=== PATIENT | female | born 1955 | race Caucasian/White ===

== ENCOUNTER 2018-01-10 11:44 | Observation (INO) | payer OTHER ==
--- NOTE | 2018-01-10 13:01 | ER Document Report ---
ED Medical Screen (RME) - General Chief Complaint: Dizziness Stated Complaint: NAUSEA, DIARRHEA, DIZZINESS Mode of Arrival: Wheelchair Information source: Patient Notes: 62 y.o female presents to the ED with dizziness, nausea and diarrhea. She reports having diarrhea intermittently for the past couple months, ever since she was put on the Xanax, and reports that before she would have constipation chronically. Pt reports that her diarrhea has worsened for the past couple weeks and states that she felt as if she was going to collapse today prior to coming here. Pt reports a low grade fever every morning. She reports recent change in her anxiety medication, taken off of Xanax and put on another anxiety medication. Pt denies any CP. PMHx of brain tumor removal in 1990. Placed on anti-seizure medication after tumor removal but did not have to do chemotherapy of radiation and no longer takes the anti-seizure medication. I have greeted and performed a rapid initial assessment of the patient. A comprehensive ED assessment and evaluation of the patient, analysis of test results, and completion of the medical decision making process will be conducted by additional ED providers. PHYSICAL EXAM: General: Alert, appears well. HEENT: Normocephalic. Atraumatic. Neck: Supple. Cardiovascular: RRR Respiratory: CTAB Abdominal: No distension. Extremities: Moves all four extremities. Neurological: Normal cognition. AAOx4. Normal speech. Psychological: Normal affect. Normal Mood. Skin: Warm. Dry. Normal color. Physical Exam - Vital signs Vitals: Temp Pulse Resp BP Pulse Ox 97.8 F 70 18 146/92 H 100 01/10/18 11:49 01/10/18 11:49 01/10/18 11:49 01/10/18 11:49 01/10/18 11:49 Course - Vital Signs Vital signs: Temp Pulse Resp BP Pulse Ox 97.8 F 70 18 146/92 H 100 01/10/18 11:49 01/10/18 11:49 01/10/18 11:49 01/10/18 11:49 01/10/18 11:49 Scribe Documentation - Scribe Written by Jarred:: Lindsey Galvan, Jarred 01/10/18 [id number] acting as scribe for :: Miguel
[2018-01-10] MEDS ORDERED: NORMAL SALINE 1000 ML 1,000 ML IV ONE ×2 (13:02→16:22)
[2018-01-10 13:44] LABS: ABSOLUTE BASOPHILS # (AUTO) 0.1 10^3/uL (0.0-0.2); ABSOLUTE LYMPHOCYTES (AUTO) 1.4 10^3/uL (0.5-4.7); ABSOLUTE MONOCYTES (AUTO) 0.6 10^3/uL (0.1-1.4); ABSOLUTE NEUT (AUTO) 9.3 10^3/uL (1.7-8.2); BASOPHILS % (AUTO) 0.5 % (0-2); EOSINOPHILS % (AUTO) 0.1 % (0-6); HEMATOCRIT 40.6 % (36.0-47.0); HEMOGLOBIN 14.2 g/dL (12.0-15.5); LYMPHOCYTES % (AUTO) 12.5 % (13-45); MEAN CORPUSCULAR HEMOGLOBIN 33.3 pg (27.0-33.4); MEAN CORPUSCULAR VOLUME 95 fl (80-97); MONOCYTES % (AUTO) 5.1 % (3-13); RED BLOOD COUNT 4.27 10^6/uL (3.72-5.28); RED CELL DISTRIBUTION WIDTH 14.7 % (11.5-14.0); SEGMENTED NEUTROPHILS % (AUTO) 81.8 % (42-78); TOTAL CELLS COUNTED % (AUTO) 100 %; WHITE BLOOD COUNT 11.4 10^3/uL (4.0-10.5)
[2018-01-10] MEDS ORDERED: PROCHLORPERAZINE EDISYLATE INJ 10 MG/2 ML VIAL IV ONE (13:55)
[2018-01-10 14:12] LABS: PLATELET COUNT 219 10^3/uL (150-450)
[2018-01-10 14:49] LABS: APPEARANCE,URINE SLIGHTLY-CLOUDY; BILIRUBIN,URINE NEGATIVE (NEGATIVE); COLOR,URINE STRAW; GLUCOSE, URINE NEGATIVE (NEGATIVE); KETONES,URINE NEGATIVE (NEGATIVE); LEUKOCYTE ESTERASE,URINE NEGATIVE (NEGATIVE); NITRITE,URINE NEGATIVE (NEGATIVE); PROTEIN,URINE NEGATIVE (NEGATIVE); URINE SPECIFIC GRAVITY 1.008; UROBILINOGEN,URINE NEGATIVE mg/dL (<2.0)
[2018-01-10 15:02] LABS: ALANINE AMINOTRANSFERASE 41 U/L (9-52); ALKALINE PHOSPHATASE 83 U/L (38-126); ANION GAP 14 (5-19); ASPARTATE AMINO TRANSFERASE 38 U/L (14-36); BILIRUBIN,DIRECT 0.4 mg/dL (0.0-0.4); BILIRUBIN,TOTAL 0.5 mg/dL (0.2-1.3); BLOOD UREA NITROGEN 23 mg/dL (7-20); CALCIUM 10.1 mg/dL (8.4-10.2); CARBON DIOXIDE 29 mmol/L (22-30); CHLORIDE 92 mmol/L (98-107); GLUCOSE 88 mg/dL (75-110); POTASSIUM 4.5 mmol/L (3.6-5.0); TOTAL PROTEIN 8.2 g/dL (6.3-8.2)
--- NOTE | 2018-01-10 15:02 | ER Document Report ---
ED General - General Chief Complaint: Dizziness Stated Complaint: NAUSEA, DIARRHEA, DIZZINESS Time Seen by Provider: 01/10/18 12:54 Mode of Arrival: Wheelchair - HPI Notes: 62-year-old female with a past medical history of brain tumor resection with status post seizures that have been well controlled for the last 10 years for concerns of new onset dizziness with associated nausea and vomiting that are occurring for the last 2 days. states that patient started having slurred vision - Related Data Allergies/Adverse Reactions: No Known Allergies Allergy (Verified 01/10/18 13:59) Past Medical History - General Information source: Patient - Social History Smoking Status: Current Every Day Smoker Chew tobacco use (# tins/day): No - vapes "alot" Frequency of alcohol use: None Drug Abuse: None Family History: Reviewed & Not Pertinent Patient has suicidal ideation: No Patient has homicidal ideation: No - Past Medical History Cardiac Medical History: Reports: Hx Hypertension Renal/ Medical History: Denies: Hx Peritoneal Dialysis Past Surgical History: Reports: Hx Hysterectomy Physical Exam - Vital signs Vitals: Temp Pulse Resp BP Pulse Ox 97.8 F 70 18 146/92 H 100 01/10/18 11:49 01/10/18 11:49 01/10/18 11:49 01/10/18 11:49 01/10/18 11:49 Course - Re-evaluation Re-evalutation: 01/10/18 17:12 62-year-old female presents to the ED via EMS for complaints of dizziness, nausea, slurred speech that occurred at 07 100 this morning and resolved 2 hours later, was witnessed by her . CBC negative for leukocytosis or anemia, CMP negative for marked hepatic or renal deficiency, no electrolyte disturbances. Urinalysis negative for any UTI. His NIH score 0. EKG negative for STEMI, sinus rhythm chest x-ray negative for acute findings, CT head negative for stroke. Case discussed with Dr. Emily Corey, ED attending, who felt the patient is a candidate for observation for TIA, consulted with Dr. Jah Scruggs, hospitalist, for observation. Questions and concerns answered by this provider with patient. Patient agreeable with plan of care for observation for TIA. Patient remains afebrile, vitals stable, denies any dizziness and without any focal neurological deficits 01/10/18 17:21 - Vital Signs Vital signs: Temp Pulse Resp BP Pulse Ox 97.8 F 77 17 137/85 H 96 01/10/18 11:49 01/10/18 14:39 01/10/18 14:39 01/10/18 14:39 01/10/18 14:39 - Laboratory Result Diagrams: 01/10/18 13:30 01/10/18 14:15 Laboratory results interpreted by me: 01/10/18 01/10/18 01/10/18 13:30 14:15 14:15 WBC 11.4 H RDW 14.7 H Seg Neutrophils % 81.8 H Lymphocytes % 12.5 L Absolute Neutrophils 9.3 H Sodium 135.0 L Chloride 92 L BUN 23 H AST 38 H Creatine Kinase 228 H Discharge - Discharge Clinical Impression: TIA (transient ischemic attack) Qualifiers: Transient cerebral ischemia type: unspecified Qualified Code(s): G45.9 - Transient cerebral ischemic attack, unspecified Condition: Stable Disposition: ADMITTED OBSERVATION Admitting Provider: Hospitalist - Dr. Thompson Scruggs Unit Admitted: Telemetry Referrals: VITA BARAJAS MD [Primary Care Provider] - Follow up as needed
[2018-01-10 15:13] LABS: CREATINE KINASE MB 4.15 ng/mL (<4.55)
[2018-01-10 15:15] LABS: TROPONIN I < 0.012 ng/mL
--- NOTE | 2018-01-10 15:22 | RADIOLOGY REPORT (SQ) ---
EXAM DESCRIPTION: CT HEAD WITHOUT COMPLETED DATE/TIME: 01/10/2018 3:06 pm REASON FOR STUDY: dizziness, hx of brain tumor resection COMPARISON: None. TECHNIQUE: Axial images acquired through the brain without intravenous contrast. Images reviewed wi th bone, brain and subdural windows. Additional sagittal and coronal reconstructions were generated. Images stored on PACS. All CT scanners at this facility use dose modulation, iterative reconstruction, and/or weight based d osing when appropriate to reduce radiation dose to as low as reasonably achievable (ALARA). [facility]: Dose Right [facility]: CareDose [facility]: Dose Right [facility]: Teradose 4D [facility]: Smart Technologies RADIATION DOSE: CT Rad equipment meets quality standard of care and radiation dose reduction techniq ues were employed. CTDIvol: 53.2 mGy. DLP: 1044 mGy-cm. mGy. LIMITATIONS: None. FINDINGS: VENTRICLES: Normal size and contour. CEREBRUM: No masses. No hemorrhage. No midline shift. No evidence for acute infarction. Normal gra y/white matter differentiation. No areas of low density in the white matter. Alkalol right heel prio r surgery. CEREBELLUM: No masses. No hemorrhage. No alteration of density. No evidence for acute infarction. EXTRAAXIAL SPACES: No fluid collections. No masses. ORBITS AND GLOBE: No intra- or extraconal masses. Normal contour of globe without masses. CALVARIUM: Right frontal craniotomy. PARANASAL SINUSES: No fluid or mucosal thickening. SOFT TISSUES: No mass or hematoma. OTHER: No other significant finding. IMPRESSION: Focal right frontal encephalomalacia status post surgery. No hemorrhage. No mass. EVIDENCE OF ACUTE STROKE: NO. COMMENT: Quality ID # [id number]: Final reports with documentation of one or more dose reduction techniques (e.g., Automated exposure control, adjustment of the mA and/or kV according to patient size, use of iterative reconstruction technique) TECHNICAL DOCUMENTATION: JOB ID: [id number] [employer]- All Rights Reserved Reading location - IP/workstation name: [email or web address]
--- NOTE | 2018-01-10 16:10 | RADIOLOGY REPORT (SQ) ---
EXAM DESCRIPTION: CHEST SINGLE VIEW COMPLETED DATE/TIME: 01/10/2018 3:51 pm REASON FOR STUDY: dizziness COMPARISON: None. EXAM PARAMETERS: NUMBER OF VIEWS: One view. TECHNIQUE: Single frontal radiographic view of the chest acquired. RADIATION DOSE: NA LIMITATIONS: None. FINDINGS: LUNGS AND PLEURA: No opacities, masses or pneumothorax. No pleural effusion. MEDIASTINUM AND HILAR STRUCTURES: No masses. Contour normal. HEART AND VASCULAR STRUCTURES: Heart normal in size. Normal vasculature. BONES: No acute findings. HARDWARE: None in the chest. OTHER: No other significant finding. IMPRESSION: NO ACUTE RADIOGRAPHIC FINDING IN THE CHEST. TECHNICAL DOCUMENTATION: JOB ID: [id number] [employer]- All Rights Reserved Reading location - IP/workstation name: [email or web address]
--- NOTE | 2018-01-10 16:42 | EKG REPORT ---
SEVERITY:- ABNORMAL ECG - SINUS RHYTHM BORDERLINE LEFT AXIS DEVIATION BORDERLINE R WAVE PROGRESSION, ANTERIOR LEADS NONSPECIFIC T ABNORMALITIES, ANTERIOR LEADS : Confirmed by: Ivan Vanegas MD 10-Jan-2018 16:41:41
[2018-01-10] MEDS ORDERED: ASPIRIN 81 MG TABLET, CHEWABLE PO ONE (17:02)
[2018-01-10] MEDS ORDERED: ACETAMINOPHEN 325 MG TABLET PO PRN (17:10)
[2018-01-10] MEDS ORDERED: ONDANSETRON HCL INJ/PF 4 MG/2 ML SDV IV PRN (17:10)
--- NOTE | 2018-01-10 18:28 | PDOC H&P ---
History of Present Illness Admission Date/PCP: 01/10/18 17:41 VITA BARAJAS MD Patient complains of: complaints of nausea vomiting diarrhea which has been going on for about 3 months. She states however that this was accompanied with dizziness today History of Present Illness: CELY CARUSO is a 62 year old female Patient presents to the emergency room with complaints of nausea vomiting diarrhea which has been going on for about 3 months. She states however that this was accompanied with dizziness today and so she got concerned and went to her primary care physician for evaluation. Was there she says her primary care physician could not obtain her systolic blood pressure and so EMS was called and she was brought here for further evaluation. Blood pressure on arrival to the ER was 146/92 with a pulse of 110. Because of dizziness she has been admitted and placed under observation to rule out an acute TIA although clinically I see no evidence of this. Spouse did mention that her speech seemed to be slurred when she was feeling dizzy. She has a remote history of a brain tumor, details unknown, about 21 years ago which was apparently resected. She was placed on Dilantin for about 10 years after that because she had seizures however she is been off Dilantin for at least another 10 years with no further episodes of seizures. CAT scan done today reveals no evidence of any acute finding. Patient says also that she had what appeared to be chest pain sometime in July of this year and she was admitted to [facility] where she had workup done including stress test as well as echocardiogram which she told me was negative. She has had no bowel movement since been in hospital and also has been up to the bathroom a few times with no evidence of dizziness or any other progressive symptoms Past Medical History Cardiac Medical History: Reports: Hypertension Neurological Medical History: Reports: Seizures Past Surgical History Past Surgical History: Reports: Hysterectomy, Other - Craniotomy Social History Smoking Status: Current Every Day Smoker - Advance Directive Resuscitation Status: Full Code Family History Family History: Reviewed & Not Pertinent Parental Family History Reviewed: No Children Family History Reviewed: Yes Sibling(s) Family History Reviewed.: Yes Medication/Allergy Allergies/Adverse Reactions: No Known Allergies Allergy (Verified 01/10/18 13:59) Review of Systems All systems: reviewed and no additional remarkable complaints except as stated Physical Exam Vital Signs: Temp Pulse Resp BP Pulse Ox 97.8 F 77 17 137/85 H 96 01/10/18 11:49 01/10/18 14:39 01/10/18 14:39 01/10/18 14:39 01/10/18 14:39 General appearance: PRESENT: no acute distress, well-developed, well-nourished Head exam: PRESENT: atraumatic, normocephalic, other - Indentation R frontal area Eye exam: PRESENT: conjunctiva pink, EOMI, PERRLA. ABSENT: scleral icterus Ear exam: PRESENT: normal external ear exam Mouth exam: PRESENT: moist, tongue midline Neck exam: ABSENT: carotid bruit, JVD, lymphadenopathy, thyromegaly Respiratory exam: PRESENT: clear to auscultation nalini. ABSENT: rales, rhonchi, wheezes Cardiovascular exam: PRESENT: RRR. ABSENT: diastolic murmur, rubs, systolic murmur Pulses: PRESENT: normal dorsalis pedis pul Vascular exam: PRESENT: normal capillary refill GI/Abdominal exam: PRESENT: normal bowel sounds, soft. ABSENT: distended, guarding, mass, organolmegaly, rebound, tenderness Rectal exam: PRESENT: deferred Extremities exam: PRESENT: full ROM. ABSENT: calf tenderness, clubbing, pedal edema Neurological exam: PRESENT: alert, awake, oriented to person, oriented to place , oriented to time, oriented to situation, CN II-XII grossly intact. ABSENT: motor sensory deficit Psychiatric exam: PRESENT: appropriate affect, normal mood. ABSENT: homicidal ideation, suicidal ideation Skin exam: PRESENT: dry, intact, warm. ABSENT: cyanosis, rash Results Laboratory Results: 01/10/18 13:30 01/10/18 14:15 MCV 95 fl (80-97) 01/10/18 13:30 MCH 33.3 pg (27.0-33.4) 01/10/18 13:30 MCHC 35.0 g/dL (32.0-36.0) 01/10/18 13:30 RDW 14.7 % (11.5-14.0) H 01/10/18 13:30 Seg Neutrophils % 81.8 % (42-78) H 01/10/18 13:30 Lymphocytes % 12.5 % (13-45) L 01/10/18 13:30 Monocytes % 5.1 % (3-13) 01/10/18 13:30 Eosinophils % 0.1 % (0-6) 01/10/18 13:30 Basophils % 0.5 % (0-2) 01/10/18 13:30 Absolute Neutrophils 9.3 10^3/uL (1.7-8.2) H 01/10/18 13:30 Absolute Lymphocytes 1.4 10^3/uL (0.5-4.7) 01/10/18 13:30 Absolute Monocytes 0.6 10^3/uL (0.1-1.4) 01/10/18 13:30 Absolute Eosinophils 0.0 10^3/uL (0.0-0.6) 01/10/18 13:30 Absolute Basophils 0.1 10^3/uL (0.0-0.2) 01/10/18 13:30 Chloride 92 mmol/L (98-107) L 01/10/18 14:15 Carbon Dioxide 29 mmol/L (22-30) 01/10/18 14:15 Anion Gap 14 (5-19) 01/10/18 14:15 Est GFR ( Amer) > 60 (>60) 01/10/18 14:15 Est GFR (Non-Af Amer) > 60 (>60) 01/10/18 14:15 Glucose 88 mg/dL (75-110) 01/10/18 14:15 Calcium 10.1 mg/dL (8.4-10.2) 01/10/18 14:15 Magnesium 1.8 mg/dL (1.6-2.3) 01/10/18 14:15 Total Bilirubin 0.5 mg/dL (0.2-1.3) 01/10/18 14:15 AST 38 U/L (14-36) H 01/10/18 14:15 ALT 41 U/L (9-52) 01/10/18 14:15 Alkaline Phosphatase 83 U/L (38-126) 01/10/18 14:15 Total Protein 8.2 g/dL (6.3-8.2) 01/10/18 14:15 Albumin 5.0 g/dL (3.5-5.0) 01/10/18 14:15 TSH 2.25 uIU/mL (0.47-4.68) 01/10/18 14:15 Urine Color STRAW 01/10/18 14:15 Urine Appearance SLIGHTLY-CLOUDY 01/10/18 14:15 Urine pH 6.0 (5.0-9.0) 01/10/18 14:15 Ur Specific [place] 1.008 01/10/18 14:15 Urine Protein NEGATIVE mg/dL (NEGATIVE) 01/10/18 14:15 Urine Glucose (UA) NEGATIVE mg/dL (NEGATIVE) 01/10/18 14:15 Urine Ketones NEGATIVE mg/dL (NEGATIVE) 01/10/18 14:15 Urine Blood NEGATIVE (NEGATIVE) 01/10/18 14:15 Urine Nitrite NEGATIVE (NEGATIVE) 01/10/18 14:15 Ur Leukocyte Esterase NEGATIVE (NEGATIVE) 01/10/18 14:15 Urine WBC (Auto) 0 /HPF 01/10/18 14:15 Urine RBC (Auto) 0 /HPF 01/10/18 14:15 01/10/18 01/10/18 14:15 14:15 Creatine Kinase 228 H CK-MB (CK-2) 4.15 Troponin I < 0.012 Impressions: Head CT 01/10/18 14:41 IMPRESSION: Focal right frontal encephalomalacia status post surgery. No hemorrhage. No mass. EVIDENCE OF ACUTE STROKE: NO. Chest X-Ray 01/10/18 15:26 IMPRESSION: NO ACUTE RADIOGRAPHIC FINDING IN THE CHEST. Assessment & Plan - Diagnosis (1) TIA (transient ischemic attack) Qualifiers: Transient cerebral ischemia type: unspecified Qualified Code(s): G45.9 - Transient cerebral ischemic attack, unspecified Is this a current diagnosis for this admission?: Yes Plan: This diagnosis is unlikely to me based on my clinical assumption however she presented with some dizziness which have completely resolved. Carotid Doppler as well as MRI will be obtained. Since she had a two-dimensional echocardiogram done just this year we will try and obtain the results from [facility]. Patient will be placed in observation status and if she is stable she likely can be discharged home tomorrow - Time Time Spent: 30 to 50 Minutes Medications reviewed and adjusted accordingly: Yes Anticipated discharge: Home Within: within 48 hours - Inpatient Certification Based on my medical assessment, after consideration of the patient's comorbidities, presenting symptoms, or acuity I expect that the services needed warrant INPATIENT care.: Yes Medical Necessity: Risk of Complication if Not Cared For in Hospital
[2018-01-10] MEDS ORDERED: ATORVASTATIN CALCIUM 10 MG TABLET PO SCH (22:00)
[2018-01-11 06:39] LABS: CHOLESTEROL 172.67 mg/dL (0-200); TRIGLYCERIDES 62 mg/dL (<150)
[2018-01-11 06:51] LABS: DIRECT LDL 38 mg/dL (<100)
--- NOTE | 2018-01-11 09:50 | RADIOLOGY REPORT (SQ) ---
EXAM DESCRIPTION: MRI HEAD WITHOUT COMPLETED DATE/TIME: 01/11/2018 9:05 am REASON FOR STUDY: Dizziness COMPARISON: CT brain 01/10/2018 TECHNIQUE: Multiplanar imaging includes non-contrasted T1, T2, FLAIR, and diffusion with ADC map seq uences. Images stored on PACS. LIMITATIONS: None. FINDINGS: ANATOMY: No developmental anomalies. Normal vascular flow voids. Pituitary fossa normal. CSF SPACES: Normal in size and contour. No hemorrhage. CEREBRUM: Old right frontal craniotomy with a 4.4 x 4.6 x 2.4 cm band like area of encephalomalacia from the cortex to the right frontal horn lateral ventricle. Remainder of the brain is otherwise unr emarkable. POSTERIOR FOSSA: No signal alteration. No hemorrhage. No edema, masses or mass effect. Internal blair tory canals, cerebello-pontine angles, mastoids normal. DIFFUSION IMAGING: Negative for acute or sub-acute infarction. ORBITS: No masses. Globes normal. PARANASAL SINUSES: No fluid levels. Mucosa normal. OTHER: No other significant finding. 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 NO ACUTE FINDINGS EVIDENCE OF ACUTE STROKE: NO. TECHNICAL DOCUMENTATION: JOB ID: [id number] [employer]- All Rights Reserved Reading location - IP/workstation name: [email or web address]
[2018-01-11] MEDS ORDERED: DOCUSATE SODIUM 100 MG CAPSULE PO SCH (10:00)
[2018-01-11] MEDS ORDERED: ENOXAPARIN SODIUM INJ 40 MG/0.4 ML DISP.SYRIN SUBCUT SCH (10:00)
[2018-01-11] MEDS ORDERED: METOPROLOL TARTRATE 25 MG TABLET PO SCH (10:00)
[2018-01-11] MEDS ORDERED: ASPIRIN 81 MG TABLET, ENT COATED PO SCH (10:00)
[2018-01-11] MEDS ORDERED: (PENDING PHARMACY ID) (Lisinopril/Hydrochlorothiazide [Zestoretic 10-12.5 Mg Tablet] 1 TAB PO SCH (10:15)
[2018-01-11] MEDS ORDERED: LISINOPRIL 10 MG TABLET PO ONE (10:30)
[2018-01-11] MEDS ORDERED: HYDROCHLOROTHIAZIDE 12.5 MG CAPSULE PO ONE (10:30)
[2018-01-11] MEDS ORDERED: CITALOPRAM HYDROBROMIDE 20 MG TABLET PO ONE (11:00)
[2018-01-11] MEDS ORDERED: METOPROLOL SUCCINATE 25 MG TAB.SR.24H PO ONE (11:00)
[2018-01-11] MEDS ORDERED: ONDANSETRON HCL INJ/PF 4 MG/2 ML SDV IV PRN (13:00)
--- NOTE | 2018-01-11 15:10 | RADIOLOGY REPORT (SQ) ---
EXAM DESCRIPTION: CAROTID DOPPLER COMPLETED DATE/TIME: 01/11/2018 1:54 pm REASON FOR STUDY: Dizziness COMPARISON: None. TECHNIQUE: Grayscale ultrasound, Doppler velocity and spectra, and color Doppler images acquired of the extra-cranial carotid and vertebral arteries. Images stored on PACS. LIMITATIONS: None. FINDINGS: RIGHT CAROTID CCA Velocities: Within normal limits. ICA Velocities Peak systolic 0.59 m/s. End diastolic 0.25 m/s. Proximal ICA/CCA peak systolic ratio 1.5. Spectra normal. No significant plaque. LEFT CAROTID CCA Velocities: Within normal limits. ICA Velocities Peak systolic 0.72 m/s. End diastolic 0.17 m/s. Proximal ICA/CCA peak systolic ratio 1 point for. Spectra normal. No significant plaque. VERTEBRAL ARTERIES: Antegrade flow. Normal waveforms. SUBCLAVIAN ARTERIES: No finding. OTHER: No other significant finding. IMPRESSION: NO HEMODYNAMICALLY SIGNIFICANT STENOSIS. COMMENT: Quality ID #[id number]: Velocity criteria are extrapolated from the diameter data as defined by t he Society of Radiologists in Ultrasound Consensus Conference. Radiology 2003: 229; 340-346. TECHNICAL DOCUMENTATION: JOB ID: [id number] [email or web address]- All Rights Reserved Reading location - IP/workstation name: [email or web address]
--- NOTE | 2018-01-11 15:34 | PDOC DISCHARGE SUMMARY ---
General - Admit/Disc Date/PCP Admission Date/Primary Care Provider: 01/10/18 17:41 VITA BARAJAS MD Discharge Date: 01/11/18 - Discharge Diagnosis (1) TIA (transient ischemic attack) Is this a current diagnosis for this admission?: Yes Summary: TIA ruled out (2) Dizziness Is this a current diagnosis for this admission?: Yes - Additional Information Resuscitation Status: Full Code Discharge Diet: Cardiac Discharge Activity: Activity As Tolerated Home Medications: Aspirin [Aspirin EC] 81 mg PO DAILY 01/11/18 Citalopram Hydrobromide [Celexa 20 mg Tablet] 20 mg PO DAILY 01/11/18 Lisinopril/Hydrochlorothiazide [Zestoretic 10-12.5 mg Tablet] 1 tab PO DAILY 11/24 Metoprolol Succinate [Toprol Xl 25 mg Tab.sr] 25 mg PO QPM 01/11/18 Metoprolol Succinate [Toprol Xl 25 mg Tab.sr] 37.5 mg PO QAM 01/11/18 History of Present Illness Patient complains of: Dizziness History of Present Illness: CELY CARUSO is a 62 year old female who presents to the emergency room with complaints of nausea vomiting diarrhea which has been going on for about 3 months. She states however that this was accompanied with dizziness today and so she got concerned and went to her primary care physician for evaluation. Was there she says her primary care physician could not obtain her systolic blood pressure and so EMS was called and she was brought here for further evaluation. Blood pressure on arrival to the ER was 146/92 with a pulse of 110. Because of dizziness she has been admitted and placed under observation to rule out an acute TIA although clinically I see no evidence of this. Spouse did mention that her speech seemed to be slurred when she was feeling dizzy. She has a remote history of a brain tumor, details unknown, about 21 years ago which was apparently resected. She was placed on Dilantin for about 10 years after that because she had seizures however she is been off Dilantin for at least another 10 years with no further episodes of seizures. CAT scan done today reveals no evidence of any acute finding. Patient says also that she had what appeared to be chest pain sometime in July of this year and she was admitted to [facility] where she had workup done including stress test as well as echocardiogram which she told me was negative. She has had no bowel movement since been in hospital and also has been up to the bathroom a few times with no evidence of dizziness or any other progressive symptoms Hospital Course Hospital Course: Patient was monitored on telemetry floor and had negative cardiac enzymes done. MRI was done which revealed no acute findings except for craniotomy and chronic findings. Carotid Doppler study done was negative and echocardiogram that was recently done at [facility] showed ejection fraction more than 55% with no significant findings. She has been ambulating with no lesions and no further recurrence of dizziness. He also had a 30 day event monitor placed which was a correct with no arrhythmias detected. At this point with no further interventions been planned and with resolution of her symptoms she is being discharged home for outpatient follow-up. TIA has been ruled out Physical Exam Vital Signs: Temp Pulse Resp BP Pulse Ox 97.6 F 84 16 175/94 H 96 01/11/18 12:52 01/11/18 15:16 01/11/18 15:16 01/11/18 15:16 01/11/18 15:16 Intake & Output 01/10/18 01/11/18 01/12/18 06:59 06:59 06:59 Intake Total 455 Output Total 1100 Balance -645 Weight 88.2 kg General appearance: PRESENT: no acute distress, well-developed, well-nourished Head exam: PRESENT: atraumatic, normocephalic - Right frontal bone dent Eye exam: PRESENT: conjunctiva pink, EOMI, PERRLA. ABSENT: scleral icterus Ear exam: PRESENT: normal external ear exam Mouth exam: PRESENT: moist, tongue midline Neck exam: ABSENT: carotid bruit, JVD, lymphadenopathy, thyromegaly Respiratory exam: PRESENT: clear to auscultation nalini. ABSENT: rales, rhonchi, wheezes Cardiovascular exam: PRESENT: RRR. ABSENT: diastolic murmur, rubs, systolic murmur Pulses: PRESENT: normal dorsalis pedis pul Vascular exam: PRESENT: normal capillary refill GI/Abdominal exam: PRESENT: normal bowel sounds, soft. ABSENT: distended, guarding, mass, organolmegaly, rebound, tenderness Rectal exam: PRESENT: deferred Extremities exam: PRESENT: full ROM. ABSENT: calf tenderness, clubbing, pedal edema Neurological exam: PRESENT: alert, awake, oriented to person, oriented to place , oriented to time, oriented to situation, CN II-XII grossly intact. ABSENT: motor sensory deficit Psychiatric exam: PRESENT: appropriate affect, normal mood. ABSENT: homicidal ideation, suicidal ideation Skin exam: PRESENT: dry, intact, warm. ABSENT: cyanosis, rash Results Laboratory Results: 01/11/18 05:47 Triglycerides 62 Cholesterol 172.67 LDL Cholesterol Direct 38 VLDL Cholesterol 12.0 HDL Cholesterol 120 01/11/18 05:47 Troponin I < 0.012 Impressions: Carotid Doppler Study 01/10/18 00:00 IMPRESSION: NO HEMODYNAMICALLY SIGNIFICANT STENOSIS. Head CT 01/10/18 14:41 IMPRESSION: Focal right frontal encephalomalacia status post surgery. No hemorrhage. No mass. EVIDENCE OF ACUTE STROKE: NO. Chest X-Ray 01/10/18 15:26 IMPRESSION: NO ACUTE RADIOGRAPHIC FINDING IN THE CHEST. Head MRI 01/11/18 00:00 IMPRESSION: OLD RIGHT FRONTAL POST OPERATIVE ENCEPHALOMALACIA. NO ACUTE FINDINGS EVIDENCE OF ACUTE STROKE: NO. Qualifiers - * PATIENT BEING DISCHARGED WITH ANY OF THE FOLLOWING DIAGNOSIS: No Plan Time Spent: Less than 30 Minutes
[2018-01-11 16:00] VITALS: BP 133/84
[2018-01-11] MEDS ORDERED: METOPROLOL SUCCINATE 25 MG TAB.SR.24H PO SCH (18:00)
[2018-01-12] MEDS ORDERED: METOPROLOL SUCCINATE 25 MG TAB.SR.24H PO SCH (08:00)
[2018-01-12] MEDS ORDERED: CITALOPRAM HYDROBROMIDE 20 MG TABLET PO SCH (10:00)
[2018-01-12] MEDS ORDERED: HYDROCHLOROTHIAZIDE 12.5 MG CAPSULE PO SCH (10:00)
[2018-01-12] MEDS ORDERED: ASPIRIN 81 MG TABLET, ENT COATED PO SCH (10:00)
[2018-01-12] MEDS ORDERED: LISINOPRIL 10 MG TABLET PO SCH (10:00)
== END 2018-01-11 17:00 | disposition home or self-care (01) ==
LOC: ER 11:44 → EH 17:41 → 3S 21:29
PROVIDERS: ADMIT Student in an Organized Health Care Education/Training Program; ATTEND Student in an Organized Health Care Education/Training Program
DX: G45.9 Transient cerebral ischemic attack, unspecified (principal); R47.81 Slurred speech; R42 Dizziness and giddiness; R19.7 Diarrhea, unspecified; R11.0 Nausea; I10 Essential (primary) hypertension; F17.200 Nicotine dependence, unspecified, uncomplicated
CPT/HCPCS: 93005; 99285; 96361; 96374; 36415 ×2; 82553; 82550; 83735; 84443; 85025; 80053; 81001; 84484 ×2; 80061; 93880; 70551; 71045; 70450; 93010; G0378 ×3; J0780; J3490 ×2; J7030

== ENCOUNTER 2020-04-15 10:44 | Day surgery (SDC) | payer OTHER ==
[~2020-04-15 10:44] MED LIST: CHONDR SU A NA/HYALUR INTRAOC KIT (SURGICARE) ONE; EPINEPHRINE INJ/PF 1 MG/1 ML AMPULE ONE; KETOROLAC TROMETHAMINE 0.45% 4 DROP/0.4 ML DROPERETTE OD PRN; LIDOCAINE 1%/PHENYLEPHRINE 1.5% 1 ML VIAL ONE
[2020-04-15] MEDS ORDERED: MIDAZOLAM 2 MG/2 ML INJ ONE (11:06)
[2020-04-15] MEDS ORDERED: FENTANYL CITRATE INJ/PF 100 MCG/2 ML AMPUL ONE (11:06)
[2020-04-15] MEDS: TETRACAINE HCL 0.5% OPH SOLN 4 ML OD PRN ×3 (11:35→12:25)
[2020-04-15] MEDS: BESIFLOXACIN HCL 0.6% OPH SUSP 5 ML BOTTLE OD PRN ×4 (11:35→12:48)
[2020-04-15] MEDS: TROPICAMIDE 1% OPH SOLN 15 ML OD PRN ×3 (11:35→11:55)
[2020-04-15] MEDS: CYCLOPENTOLATE 0.2%/PHENYLEPHRINE 1% OPH SOLN 2 ML OD PRN ×3 (11:35→11:55)
[2020-04-15] MEDS: PREDNISOLONE ACETATE 1% OPH SUSP 5 ML OD PRN ×2 (12:48)
[2020-04-15] MEDS: DORZOLAMIDE HCL 2%/TIMOLOL MALEAT 0.5% OPH SOLN 10 ML OD PRN ×2 (12:48)
--- NOTE | 2020-04-15 15:19 | Operative Report ---
Operative Report-[facility] Operative Report: DATE OF SURGERY: April 15, 2020 PREOPERATIVE DIAGNOSIS: NUCLEAR CATARACT, RIGHT EYE. POSTOPERATIVE DIAGNOSIS: NUCLEAR CATARACT, RIGHT EYE. PROCEDURE PERFORMED: PHACOEMULSIFICATION WITH POSTERIOR CHAMBER INTRAOCULAR LENS IMPLANT, RIGHT EYE. SURGEON: Junaid Dubon, MEDICATIONS AND ANESTHESIA: Versed: IV Versed Tetracaine drops: 1 to 2 drops given as needed COMPLICATION: None INDICATIONS FOR SURGERY: Medical necessity: Best corrected visual acuity worse than 20/40 secondary to cataracts with impairment of ability to carry out needs or desired activities, blurred vision, visual distortion, reduced contrast sensitivity and/or glare with association functional impairment and supporting documentation/testing, and cataracts causing symptomatic impairment of visual functions not corrected with tolerable changes in glasses or contact lenses interfering with activities of daily life. PROCEDURE: Consent: The risks, benefits and alternatives of this procedures was discussed with the patient. The patient read and signed the consent forms, was identified and was seated in the exam chair. IOL: MX 60 ET 22.5/1.25 at 6 degrees IOL Diopters: Phacoemulsification with posterior chamber intraocular lens implant: The face was prepped with 5% povidone iodine solution, and a few drops of 5% povidone iodine solution was instilled into the inferior fornix. A non-fenestrated drape was placed over the eye and the lids were parted with the speculum. A paracentesis was made with a 15 degree blade, and 1% lidocaine MPF followed by viscoelastic was injected into the anterior chamber. A 2.4 mm metal micro- keratome was used to create a temporal clear corneal incision. A circular anterior capsulorrhexis was created, followed by hydro-dissection and hydro- delineation. The phacoemulsification hand piece was inserted and the nucleus was removed with the Phaco chop technique. The irrigation-aspiration hand piece was used to remove the residual cortex, and vacuum the posterior capsule. The capsular bag was inflated and viscoelastic and the above-mentioned IOL was injected into the eye with care to insert both leaning and trailing haptics in the capsular bag. The irrigation/aspiration hand piece was reinserted to remove residual viscoelastic from the capsular bag and anterior chamber. The corneal incision was hydrated, and anterior chamber was inflated with sterile BSS via the paracentesis site, and found to be watertight. Postop medication: 1 drop of prednisolone into operative by followed by 1 drop of Cosopt into operative eye followed by 1 drop of Besivance intraoperative by other:
== END 2020-04-15 13:20 ==
LOC: SC 10:44
PROVIDERS: ATTEND Ophthalmology
DX: H25.11 Age-related nuclear cataract, right eye (principal); Z79.82 Long term (current) use of aspirin; F17.210 Nicotine dependence, cigarettes, uncomplicated; F41.9 Anxiety disorder, unspecified; J45.909 Unspecified asthma, uncomplicated; F32.9 Major depressive disorder, single episode, unspecified; I10 Essential (primary) hypertension; R56.9 Unspecified convulsions; R01.1 Cardiac murmur, unspecified; D64.9 Anemia, unspecified; Z85.841 Personal history of malignant neoplasm of brain
CPT/HCPCS: 66984; V2787; J2250; J3490 ×2; J0171; J3010

== ENCOUNTER 2020-04-29 08:21 | Day surgery (SDC) | payer OTHER ==
[~2020-04-29 08:21] MED LIST changes: -KETOROLAC TROMETHAMINE 0.45% 4 DROP/0.4 ML DROPERETTE OD PRN; +KETOROLAC TROMETHAMINE 0.45% 4 DROP/0.4 ML DROPERETTE OS PRN
[2020-04-29] MEDS: TROPICAMIDE 1% OPH SOLN 15 ML OS PRN ×3 (08:50→09:04)
[2020-04-29] MEDS: BESIFLOXACIN HCL 0.6% OPH SUSP 5 ML BOTTLE OS PRN ×4 (08:50→10:15)
[2020-04-29] MEDS: TETRACAINE HCL 0.5% OPH SOLN 4 ML OS PRN ×3 (08:50→09:56)
[2020-04-29] MEDS: CYCLOPENTOLATE 0.2%/PHENYLEPHRINE 1% OPH SOLN 2 ML OS PRN ×3 (08:50→09:04)
[2020-04-29] MEDS ORDERED: MIDAZOLAM 2 MG/2 ML INJ ONE (08:54)
[2020-04-29] MEDS ORDERED: ONDANSETRON HCL INJ/PF 4 MG/2 ML SDV ONE (08:54)
[2020-04-29] MEDS ORDERED: FENTANYL CITRATE INJ/PF 100 MCG/2 ML AMPUL ONE (08:54)
[2020-04-29] MEDS: DORZOLAMIDE HCL 2%/TIMOLOL MALEAT 0.5% OPH SOLN 10 ML OS PRN ×2 (10:08→10:15)
[2020-04-29] MEDS: PREDNISOLONE ACETATE 1% OPH SUSP 5 ML OS PRN ×2 (10:08→10:15)
--- NOTE | 2020-04-29 13:48 | Operative Report ---
Operative Report-[facility] Operative Report: DATE OF SURGERY: April 29, 2020 PREOPERATIVE DIAGNOSIS: NUCLEAR CATARACT, LEFT EYE. POSTOPERATIVE DIAGNOSIS: NUCLEAR CATARACT, LEFT EYE. PROCEDURE PERFORMED: PHACOEMULSIFICATION WITH POSTERIOR CHAMBER INTRAOCULAR LENS IMPLANT, LEFT EYE. SURGEON: Junaid Dubon DO MEDICATIONS AND ANESTHESIA: Versed: IV Versed Tetracaine drops: 1 to 2 drops given as needed COMPLICATION: None INDICATIONS FOR SURGERY: Medical necessity: Best corrected visual acuity worse than 20/40 secondary to cataracts with impairment of ability to carry out needs or desired activities, blurred vision, visual distortion, reduced contrast sensitivity and/or glare with association functional impairment and supporting documentation/testing, and cataracts causing symptomatic impairment of visual functions not corrected with tolerable changes in glasses or contact lenses interfering with activities of daily life. PROCEDURE: Consent: The risks, benefits and alternatives of this procedures was discussed with the patient. The patient read and signed the consent forms, was identified and was seated in the exam chair. IOL: MX 60 ET 23.0/2.75 at 167 IOL Diopters: Phacoemulsification with posterior chamber intraocular lens implant: The face was prepped with 5% povidone iodine solution, and a few drops of 5% povidone iodine solution was instilled into the inferior fornix. A non-fenestrated drape was placed over the eye and the lids were parted with the speculum. A paracentesis was made with a 15 degree blade, and 1% lidocaine MPF followed by viscoelastic was injected into the anterior chamber. A 2.4 mm metal micro- keratome was used to create a temporal clear corneal incision. A circular anterior capsulorrhexis was created, followed by hydro-dissection and hydro- delineation. The phacoemulsification hand piece was inserted and the nucleus was removed with the Phaco chop technique. The irrigation-aspiration hand piece was used to remove the residual cortex, and vacuum the posterior capsule. The capsular bag was inflated and viscoelastic and the above-mentioned IOL was injected into the eye with care to insert both leaning and trailing haptics in the capsular bag. The irrigation/aspiration hand piece was reinserted to remove residual viscoelastic from the capsular bag and anterior chamber. The corneal incision was hydrated, and anterior chamber was inflated with sterile BSS via the paracentesis site, and found to be watertight. Postop medication:1 drop of prednisolone into operative by followed by 1 drop of Cosopt into operative eye followed by 1 drop of Besivance intraoperative by Other:
== END 2020-04-29 10:47 ==
LOC: SC 08:21
PROVIDERS: ATTEND Ophthalmology
DX: H25.12 Age-related nuclear cataract, left eye (principal); Z98.41 Cataract extraction status, right eye; F41.8 Other specified anxiety disorders; I10 Essential (primary) hypertension; J45.909 Unspecified asthma, uncomplicated; Z79.82 Long term (current) use of aspirin; F17.210 Nicotine dependence, cigarettes, uncomplicated; R56.9 Unspecified convulsions; Z85.841 Personal history of malignant neoplasm of brain
CPT/HCPCS: 66984; V2787; J2250; J3490 ×2; J0171; J3010; J2405